=== PATIENT | male | born 1955 | race Caucasian/White ===

== ENCOUNTER 2017-05-16 09:00 | Day surgery (SDC) | payer BC ==
[~2017-05-16 09:00] MED LIST: ACETAMINOPHEN 1,000 MG/100 ML BTL IV ONE; CEFAZOLIN 2 Gram 2 GM/50 ML BAG IVPB ONE
[2017-05-16] MEDS ORDERED: FENTANYL PF 100MCG/2ML VIAL IV ONE (12:49)
[2017-05-16] MEDS ORDERED: PROPOFOL 10 MG/ML VIAL IV ONE (12:49)
[2017-05-16] MEDS ORDERED: *PACU ONLY* KETAMINE HCL 10 MG/ML (20ML) VIAL IV ONE (12:49)
[2017-05-16] MEDS ORDERED: LIDOCAINE 2% MDV (20MG/ML) 20ML VIAL IV ONE (12:49)
[2017-05-16] MEDS ORDERED: MIDAZOLAM HCL 2MG/2ML VIAL IV ONE (12:49)
--- NOTE | 2017-05-20 09:40 | Operative Note ---
DATE OF SURGERY: 05/16/2017 PREOPERATIVE DIAGNOSIS: Elevated PSA, enlarged prostate with urinary symptoms. POSTOPERATIVE DIAGNOSIS: Elevated PSA, enlarged prostate with urinary symptoms. OPERATION: Cystoscopy and transrectal ultrasound-guided prostate biopsies. Anesthesia: Sedation. PROCEDURE: Preop informed consent was obtained. Antibiotics were given. Sedation was administered. The patient was brought to the operating room, carefully placed in lithotomy position with genitalia prepped and draped sterilely. Cystoscopy was performed. The anterior urethra appears unremarkable. The prostatic urethra was then entered and there was steep upward angulation and a very enlarged prostate which shows complete lateral lobe obstruction. The bladder was entered and inspected. No further abnormality was seen in the bladder. The scope was then withdrawn, and the patient was then carefully placed in the left lateral decubitus position. Transrectal ultrasound was performed, and the prostate was adequately visualized. Twelve biopsies were taken from the prostate sampling the base, mid, and apex of the gland on both sides both laterally and medially for a total of 12 biopsies taken. The probe was then removed. Direct digital pressure was placed on the prostate and there was minimal bleeding at the end of the procedure. The patient was awakened and transferred to recovery in stable condition. PLAN: The patient will follow up in the [facility] to discuss the biopsy results. If there is no malignancy detected, most likely he will benefit from some form of surgical therapy for his BPH such as transurethral resection or vaporization. CC: Pari MENENDEZ
== END 2017-05-16 12:25 | disposition home or self-care (01) ==
LOC: SUR 09:00
PROVIDERS: ATTEND Urology
DX: N40.1 Benign prostatic hyperplasia with lower urinary tract symptoms (principal)
CPT/HCPCS: 52000; 55700; 00910; 76942; J3010; J0690

== ENCOUNTER 2017-08-05 12:51 | Day surgery (SDC) | payer BC ==
[~2017-08-05 12:51] MED LIST changes: -ACETAMINOPHEN 1,000 MG/100 ML BTL IV ONE
[2017-08-05] MEDS ORDERED: MIDAZOLAM HCL 2MG/2ML VIAL IV ONE (12:52)
[2017-08-05] MEDS ORDERED: *PACU ONLY* KETAMINE HCL 10 MG/ML (20ML) VIAL IV ONE (12:52)
[2017-08-05] MEDS ORDERED: PROPOFOL 10 MG/ML VIAL IV ONE (12:52)
--- NOTE | 2017-08-06 13:30 | Operative Note ---
DATE OF SURGERY: 08/05/2017 PREOPERATIVE DIAGNOSIS: Elevated PSA and suspicious prostate biopsy. POSTOPERATIVE DIAGNOSIS: Elevated PSA and suspicious prostate biopsy. OPERATION: Transrectal ultrasound-guided saturation prostate biopsies. Anesthesia: Sedation. Indication: A 61-year-old male with the above history who recently underwent his initial prostate biopsy which revealed atypical glans in the right mid prostate area. He presents today for repeat biopsy according to current guidelines for that finding. We discussed the procedure again including potential risks of pain, bleeding, sepsis, iatrogenic injury, inability to void. He understands and wishes to proceed. PROCEDURE: Preop informed consent was obtained, antibiotics were given. He received 2 g of Ancef as well as Levaquin preoperatively and will complete 3 days of Levaquin postoperatively. Sedation was administered, transrectal ultrasound was obtained to image the prostate. Prostate volume was estimated at 70 mL. Biopsies were then obtained. Three biopsies were taken from the left base , left apex, and left portion of the prostate. Twelve biopsies were then taken in a saturation type fashion from the patient's right side. The right lateral base made an apex. Each had 2 biopsies taken as well as the right base made an apex as well. The ultrasound probe was then removed after all the biopsies were obtained. Direct pressure was placed on the prostate and there was minimal bleeding. The patient was awakened and transferred to recovery in stable condition. PLAN: The patient will follow up in 2 weeks to review the biopsy results. He states that Flomax that he was given to help with his voiding symptoms due to BPH with obstruction has been helping significantly, and he will continue on that therapy for the time being. CC: Pari MENENDEZ
== END 2017-08-05 15:40 | disposition home or self-care (01) ==
LOC: SUR 12:51
PROVIDERS: ATTEND Urology
DX: N40.0 Benign prostatic hyperplasia without lower urinary tract symptoms (principal); I10 Essential (primary) hypertension; E78.00 Pure hypercholesterolemia, unspecified
CPT/HCPCS: 55700; 00902; 76942; J0690

== ENCOUNTER 2017-09-08 09:02 | Day surgery (SDC) | payer BC ==
[2017-09-08] MEDS ORDERED: LIDOCAINE 2% MDV (20MG/ML) 20ML VIAL IV ONE (09:03)
[2017-09-08] MEDS ORDERED: PROPOFOL 10 MG/ML VIAL IV ONE (09:03)
--- NOTE | 2017-09-09 12:50 | Operative Note ---
DATE OF SURGERY: 09/08/2017 OPERATION: COLONOSCOPY to the cecum with cold snare polypectomy x1 and electrocautery snare polypectomy x1 and endoclip placement x1. INDICATION: Colorectal cancer screening in this gentleman who had his last examination 10 years ago by my associate. He returns at this time for screening purposes only. He denies current GI complaints. ANESTHESIA: Intravenous sedation was administered by the department of anesthesiology and included Diprivan titrated to effect. PROCEDURE: Following informed consent from this alert individual including a discussion of the risks and benefits of the procedure and an opportunity for the patient to ask questions, the patient was in the left lateral decubitus position. A digital rectal examination was performed. No abnormalities were noted. Following this, the Olympus HAM729 video colonoscope was inserted into the rectum without resistance. The rectal mucosa had a normal appearance with normal folds and distensibility. There was some retained liquid and semi-solid stool in the rectum. The colonoscope was then farther advanced up through the bowel to the level of the cecum without much difficulty. Throughout the remainder of the bowel, the mucosa appeared normal, the folds were normal, and the bowel was fairly well distensible. There were a few scattered diverticula noted in the sigmoid colon. The preparation was fair, but with washing and suctioning, visualization was adequate. The cecum was defined by noting the appendiceal orifice and ileocecal valve. In the ascending colon near the cecum there was a sessile 8 mm polyp noted which was removed with electrocautery snare polypectomy. An endoclip was placed for closure of the polypectomy site. There was minimal bleeding. There was a smaller 4 mm polyp noted in the cecum which was removed with cold snare polypectomy and suctioned through the endoscope into a collection trap. Retroflexion in the cecum was unremarkable. Again there was some liquid and semi-solid stool noted, most of which was removed with washing and suctioning vigorously. From the base of the cecum, the colonoscope was then withdrawn. No additional changes were appreciated. No additional polyps were seen. Again, diverticulosis was noted in the sigmoid colon. Retroflexion in the rectum was endoscopically unremarkable. The endoscope was straightened and removed. The patient tolerated the procedure well and was returned to the recovery area in stable condition. IMPRESSION: 1. An 8 mm ascending colon polyp removed with electrocautery snare polypectomy with endoclip placement following polypectomy. 2. A 4 mm cecal polyp removed with cold snare polypectomy. 3. Diverticulosis in the sigmoid colon. 4. [id number] prep following washing and suctioning. RECOMMENDATIONS: Because of the preparation and the finding of polyps, at this time I did recommend the patient have a recheck colonoscopy in 3 years' time or sooner if problems arise. Followup will otherwise be with Dr. Faulkner. As always, thank you for allowing me to participate in the care of your patient. CC: TERRENCE FAULKNER D.O. T[facility]
== END 2017-09-08 10:50 | disposition home or self-care (01) ==
LOC: HOP 09:02
PROVIDERS: ATTEND Internal Medicine Gastroenterology
DX: Z12.11 Encounter for screening for malignant neoplasm of colon (principal); I10 Essential (primary) hypertension; F32.9 Major depressive disorder, single episode, unspecified; D12.2 Benign neoplasm of ascending colon; D12.0 Benign neoplasm of cecum; K57.30 Diverticulosis of large intestine without perforation or abscess without bleeding

== ENCOUNTER 2018-07-16 05:28 | Day surgery (SDC) | payer BC ==
[2018-07-16] MEDS ORDERED: PHENYLEPHRINE HCL 10 MG/ML VIAL IVP ONE (05:29)
[2018-07-16] MEDS ORDERED: PROPOFOL 10 MG/ML VIAL IV ONE (05:29)
[2018-07-16] MEDS ORDERED: BUPIVACAINE LIPOSOME 266MG/20ML VIAL IV ONE (05:29)
[2018-07-16] MEDS ORDERED: ROPIVACAINE HCL (NAROPIN) /PF 5MG/ML 20ML VIAL IV ONE (05:29)
[2018-07-16] MEDS ORDERED: DEXAMETHASONE 4 MG/ML 1ML VIAL IVP ONE (05:29)
[2018-07-16] MEDS ORDERED: MIDAZOLAM HCL 2MG/2ML VIAL IV ONE (05:29)
[2018-07-16] MEDS ORDERED: BUPIVACAINE 0.5% W/EPI MPF 30 ML VIAL IVP ONE (05:29)
[2018-07-16] MEDS ORDERED: CELECOXIB 100 MG CAPSULE PO ONE (06:00)
[2018-07-16] MEDS ORDERED: FAMOTIDINE 20MG TABLET PO ONE (06:00)
[2018-07-16] MEDS ORDERED: CEFAZOLIN 2 Gram 2 GM/50 ML BAG IVPB ONE (06:00)
[2018-07-16] MEDS ORDERED: METOCLOPRAMIDE 10 MG TABLET PO ONE (06:00)
[2018-07-16] MEDS ORDERED: ACETAMINOPHEN 1,000 MG/100 ML BTL IV ONE (06:00)
[2018-07-16] MEDS ORDERED: MECLIZINE 25 MG TABLET PO ONE (06:00)
[2018-07-16] MEDS ORDERED: METOCLOPRAMIDE HCL 10 MG/2 ML VIAL IVP PRN (10:30)
[2018-07-16] MEDS ORDERED: TRAMADOL HCL 50 MG TABLET PO PRN ×2 (10:30)
[2018-07-16] MEDS ORDERED: SENNOSIDES/DOCUSATE SODIUM UD CAPSULE PO PRN (10:30)
[2018-07-16] MEDS ORDERED: ZOLPIDEM TARTRATE 5 MG TABLET PO PRN (10:30)
[2018-07-16] MEDS ORDERED: AL HYDROX/MAG HYDROX 30ML UD PO PRN (10:30)
[2018-07-16] MEDS ORDERED: DIPHENHYDRAMINE HCL 25 MG CAPSULE PO PRN (10:30)
[2018-07-16] MEDS ORDERED: OXYCODONE HCL 5 MG TABLET PO PRN (10:30)
[2018-07-16] MEDS ORDERED: MAGNESIUM HYDROXIDE 30 ML UDC PO PRN (10:30)
[2018-07-16] MEDS ORDERED: ONDANSETRON HCL IV 4 MG/2 ML VIAL IVP PRN (10:30)
[2018-07-16] MEDS ORDERED: RINGERS SOLUTION,LACTATED 1,000 ML IV PRN (10:38)
[2018-07-16] MEDS: RINGERS SOLUTION,LACTATED 1,000 ML IV SCH ×2 (11:19→20:00)
[2018-07-16] MEDS ORDERED: TRANEXAMIC ACID 1,000 MG in 0.9 % SODIUM CHLORIDE 100ML 100 ML IVPB ONE (12:00)
[2018-07-16] MEDS: ACETAMINOPHEN 1,000 MG/100 ML BTL IV SCH ×2 (13:49→19:04)
[2018-07-16] MEDS: HYDROMORPHONE HCL 2 MG/ML VIAL IV PRN ×3 (14:00→17:44)
[2018-07-16] MEDS: CEFAZOLIN 2 Gram 2 GM/50 ML BAG IVPB SCH ×2 (15:17→23:05)
--- NOTE | 2018-07-16 15:19 | Rehab Evaluation ---
Patient Information - Patient Information Diagnosis: L Knee OA Ordered Treatment: PT Evaluate and Treat Status: Initial Evaluation Surgery: Yes (Left TKA) Date of Surgery: 07/16/18 History: Detail (Pt. notes history of degenerative changes at the left knee.) Past Med/Anjel Hx Detail: Detail (Pt. underwent R TKA October 2015. Pt. underwent laminectomy . See additional medication forms.) Past Medical/Surgical Hx: PAST MEDICAL/SURGICAL HISTORY Past Surgical History prostate bx right total knee replacement lamectomy toe surgery vasectomy left knee sx rt knee sx colonoscopy prostate bx- 2011 PMH - Respiratory Hx Respiratory Disorders No PMH - Cardiovascular Hx Cardiovascular Disorders Yes Hx Hypertension Yes: on meds good control Exercise Tolerance Poor PMH - Neuro Hx Neurological Disorders No Hx Weakness Yes: left knee PMH - GI Hx Gastrointestinal Disorders No PMH - Hx Genitourinary Disorders Yes Hx Bladder Problem Yes: frequency Hx Prostate Problems Yes: enlarged high PSA Comment: no CA of prostate PMH - Endocrine Hx Endocrine Disorders No PMH - Musculoskeletal Hx Musculoskeletal Disorders Yes Hx Arthritis Yes Hx Back Injury Yes Comment: back surgeries PMH - Psych Hx Psychiatric Problems No PMH - Hematology/Oncology Hx Hematology/Oncology No Disorders Premorbid Status: Detail (Degenerative changes; Wear and Tear) Social History: Detail (Pt. lives in a single story home with three steps leading into the home with no hand rails. Pt. has a walk in shower with grab bars and hand held shower with shower bench. Pt. has a elevated toilet. Pt. is to have OP PT at [facility] on 07-20-18.) Precautions: [place], Fall - Time With Patient Total Time Spent With Patient (Min): 30 Treatment Procedures: Detail (Physical Therapy Evaluation Completed. Pt. was left supine with call light available, B IPC, Cryo LLE, CPM set at 0-60 degrees , and nursing was notified of pt. status.) Subjective Information - Subjective Information Per Patient (Pt. c/o 7/10 pain to start tx. Pt. denied nausea. Pt. was previouly taken to bathroom with nursing with successful bowel movement.) Objective Data - Pain Pain Present: Yes Pain Scale Used: Numeric (1 - 10) (7/10) - Mental Status Patient Orientation: Oriented x3 - Visual Perception Appears within normal limits for therapeutic activities - ROM Not within normal limits (RLE grossly WFL. L knee functional for ambulation with walker to bathroom, however formal testing not assessed secondary to surgery.) - Strength/Tone Not within normal limits (RLE WFL grossly. BUE 5/5 grossly. Pt. exhibits I SLR with transfers regarding LLE.) - Coordination Appears within normal limits for therapeutic activities - Bed Mobility Independent (Pt. was independent with supine to seated, seated to supine transfer and lifting of lower extremities when getting into CPM. Pt. did require use of trapeeze to position himself appropriately into CPM.) - Transfers Independent (Pt. was indepenent with sit to stand and stand to sit transfer. Pt. was independent with standing void attempt in bathroom.) - Balance Balance Sitting: Good (No loss from midline with seated balance.) Balance Standing: Fair (Pt. unable to maintain midline positioning with standing weight shifts next to walker.) - Sensation Intact - Gait Detail (Pt. ambulated to bathroom and back with contact guard x1, exhibiting proper gait mechanics using standard walker.) - ADL's/IADL's Detail (Independent with bathroom use.) - Special Tests No Therapy Assessment - Therapy Assessment Detail (Pt. exhibits antalgic gait, LE weakness and ROM restriction secondary to TKA. Pt. was functional and independent with bed mobility and transfers, is a good candidate for stair assessment and to pass goals for inpatient PT following medical clearance.) Patient Education - Patient Education Teaching Topic: Equipment Use, Exercise/Activity, Precautions (Pt. verbalized good understanding of precautions and HEP considering previous TKA.) Response: Verbalize Understanding Teaching Method: Discussion Teaching Recipient: Patient Barriers To Learning: None Problem List - Problem List Physical Therapy Problem List: Detail (1) LE Weakness 2) LE ROM Restriction 3) Balance Impairment 4) Antalgic Gait 5) Stairs not Assessed secondary to elevated pain.) Goals - Goals Physical Therapy Goals: 1) Pt. will be independent with bed mobility and transfer without use of trapeeze. 2) Pt. will independently ascend and descend three steps with safe gait mechanics and AD positioning. 3) Pt. will verbalize good understanding of discharge precautions such as joint positioning, frequency of icing, and frequency of exercises prior to OP PT. 4) Pt. will independently ambulate household distances with AD using proper gait mechanics. Prognosis - Prognosis Good (Pt. is expected to meet all inpatient goals within 1-2 days from initial evaluation and be appropriate for D/C from inpatient PT following medical clearance.) Plan - Plan Physical Therapy Plan: Pt. is to be seen 1-2x per day for inpatient PT until goals met for D/C.
[2018-07-16] MEDS: OXYCODONE HCL 5 MG TABLET PO PRN ×2 (19:09→23:52)
[2018-07-16] MEDS ORDERED: AMLODIPINE BESYLATE 5MG TAB PO SCH (22:00)
[2018-07-16] MEDS ORDERED: TAMSULOSIN HCL 0.4 MG CAP.ER.24H PO SCH (22:00)
[2018-07-16] MEDS: ASPIRIN 325 MG TAB ENTERIC-COATED PO SCH (22:34)
[2018-07-17] MEDS: ACETAMINOPHEN 1,000 MG/100 ML BTL IV SCH (01:21)
[2018-07-17] MEDS: OXYCODONE HCL 5 MG TABLET PO PRN ×2 (05:31→09:27)
[2018-07-17] MEDS: CEFAZOLIN 2 Gram 2 GM/50 ML BAG IVPB SCH (06:15)
[2018-07-17 06:40] LABS: HEMATOCRIT 39.7 % (42.0-52.0); HEMOGLOBIN 12.9 gm/dl (14.0-18.0); MEAN CELL VOLUME 102.8 fl (81-97); MEAN CORPUSCULAR HEMOGLOBIN 33.4 pg (27-33); MEAN CORPUSCULAR HGB CONC 32.5 g/dl (32-36); MEAN PLATELET VOLUME 11.2 fl (7.4-10.4); PLATELET COUNT 278 K/uL (130-400); RED BLOOD COUNT 3.86 M/uL (4.40-5.70); RED CELL DISTRIBUTION WIDTH 13.4 % (11.5-14.5)
[2018-07-17] MEDS: ASPIRIN 325 MG TAB ENTERIC-COATED PO SCH (09:26)
--- NOTE | 2018-07-17 09:40 | Operative Note ---
DATE OF SURGERY: 07/16/2018 Surgeon: Kelvin Childress DO PREOPERATIVE DIAGNOSIS: Primary osteoarthritis of the left knee. POSTOPERATIVE DIAGNOSIS: Primary osteoarthritis of the left knee. OPERATION: Left total knee arthroplasty. PROCEDURE: This 62-year-old male was taken to the operating room and placed in the supine position on the operating room table. Spinal anesthesia was induced by the department of anesthesia. The left lower extremity was elevated. It was prepped with Hibiclens and draped in the usual sterile fashion. Exsanguinated and the tourniquet inflated to 300 mmHg. All scrub personnel wore personal isolation suits. An anterior longitudinal midline incision was made followed by a medial parapatellar arthrotomy incision. An intracondylar drill hole was made for the intramedullary alignment casandra and the distal femoral cutting block was pinned in 6 degrees of valgus and a 9 mm cut was made. Sizing jig was affixed and size 70 was seen to be the appropriate size. The 4-in-1 cutting block was pinned in 3 degrees of external rotation. The appropriate cuts were made. We then directed our attention to the proximal tibia, and an extramedullary alignment guide was used to cut the proximal tibia referencing a 10 mm cut off the lateral tibial plateau. Once the cutting block had been set in the appropriate position and pinned, a 3-degree posterior slope cut was made. Wafer of bone was removed and remnants of the menisci and osteophytes were removed from the posterior aspect of the joint. The tibia was sized to a size 79 and the stem punch was used. The patella was then cut and restored to anatomic height with a 37 x 8.6 mm trial. The remainder of the trials were inserted and a size 10 mm bearing was seen to be the appropriate size. The knee was taken through range of motion with full extension and full flexion possible with no instability of any of the components. All trial components were then removed and the wound copiously irrigated with pulse lavage and lactated Ringer's solution. Exparel was injected into the posteromedial and posterolateral corners of the joint. After the insertion of all components, the remainder was injected into the periosteum and joint capsule of the proximal tibia and distal femur. All components were cemented into place, and excess cement removed after the insertion of each component. Initially the tibial baseplate was placed followed by the insertion of the tibial bearing, femoral component, and finally the patella. Once the cement had hardened, the knee was again taken through range of motion and again found to be stable. A drain was placed through a separate stab incision, and the arthrotomy incision was closed with a #2 Vicryl. The subcutaneous tissue was closed with 0 Vicryl and the skin was stapled. Polar Care was applied, and the patient was taken to the recovery room in satisfactory condition. GROSS PATHOLOGY: This patient demonstrated severe patellofemoral osteoarthritis and severe full-thickness loss in the medial compartment also was identified, the medial femoral condyle with the lateral compartment showing grade 3 changes. Final components inserted were a [employer] size 70 cruciate retaining femur, a 79 tibial baseplate, a 10 mm anterior stabilized E1 bearing, and a 37 x 8.6 mm patella was used. CC: Pari MENENDEZ
--- NOTE | 2018-07-17 09:43 | Physical Therapy Tx Note ---
Physical Therapy Tx Note - Treatment Note Tolerated: Good Total Time Spent With Patient: 15 Physical Therapy Tx Note: Detail (Patient was up in chair upon arrival with complaints of 7/10 L knee pain. Patient reports being IND with bed mobility. Patient ambulated approx. 100' using a standard walker and supervision for safety. Patient also ambulated a flight of 3 stairs using a folded walker, hand rail, and supervision for safety. Patient required education for proper technique. Patient was left sitting up in chair with call light in reach.) Physical Therapy Problem List: Detail (1) LE Weakness 2) LE ROM Restriction 3) Balance Impairment 4) Antalgic Gait 5) Stairs not Assessed secondary to elevated pain.) Physical Therapy Goals: 1) Pt. will be independent with bed mobility and transfer without use of trapeeze. (Goal Met). 2) Pt. will independently ascend and descend three steps with safe gait mechanics and AD positioning. (Goal Met) . 3) Pt. will verbalize good understanding of discharge precautions such as joint positioning, frequency of icing, and frequency of exercises prior to OP PT. (Goal Met). 4) Pt. will independently ambulate household distances with AD using proper gait mechanics.(Goal Met) Prognosis: Good Physical Therapy Plan: Patient has met all IP PT goals and will be discharged to OP PT.
[2018-07-17] MEDS ORDERED: CELECOXIB 100 MG CAPSULE PO SCH (10:00)
[2018-07-17] MEDS ORDERED: PATIENT OWN MED: LOSARTAN 100 MG PO SCH (10:00)
--- NOTE | 2018-07-17 10:24 | Rehab Evaluation ---
Patient Information - Patient Information Diagnosis: L Knee OA Ordered Treatment: OT Evaluate and Treat Status: Initial Evaluation Surgery: Yes (Left TKA) Date of Surgery: 07/16/18 History: Detail (Pt. notes history of degenerative changes at the left knee.) Past Med/Anjel Hx Detail: Detail (Pt. underwent R TKA October 2015. Pt. underwent laminectomy .) Past Medical/Surgical Hx: PAST MEDICAL/SURGICAL HISTORY Past Surgical History prostate bx right total knee replacement lamectomy toe surgery vasectomy left knee sx rt knee sx colonoscopy prostate bx- 2011 PMH - Respiratory Hx Respiratory Disorders No PMH - Cardiovascular Hx Cardiovascular Disorders Yes Hx Hypertension Yes: on meds good control Exercise Tolerance Poor PMH - Neuro Hx Neurological Disorders No Hx Weakness Yes: left knee PMH - GI Hx Gastrointestinal Disorders No PMH - Hx Genitourinary Disorders Yes Hx Bladder Problem Yes: frequency Hx Prostate Problems Yes: enlarged high PSA Comment: no CA of prostate PMH - Endocrine Hx Endocrine Disorders No PMH - Musculoskeletal Hx Musculoskeletal Disorders Yes Hx Arthritis Yes Hx Back Injury Yes Comment: back surgeries PMH - Psych Hx Psychiatric Problems No PMH - Hematology/Oncology Hx Hematology/Oncology No Disorders Premorbid Status: Detail (Degenerative changes; Wear and Tear) Social History: Detail (Pt. lives in a single story home with three steps leading into the home with no hand rails. Pt. has a walk in shower with grab bars and hand held shower with shower bench. Pt. has a elevated toilet with railings. Pt. is to have OP PT at [facility] on 07-20-18. Pt is responsible fo home mgmt, meal prep and laundry as well as outside chores. will be available to assist as needed. He has a standard walker, quad cane and standard cane.) Precautions: [place], Fall - Time With Patient Total Time Spent With Patient (Min): 45 Treatment Procedures: Detail (OT eval low complexity) Subjective Information - Subjective Information Per Patient Objective Data - Pain Pain Present: Yes (-01/13) - Mental Status Patient Orientation: Oriented x3 - Visual Perception Appears within normal limits for therapeutic activities - ROM Within normal limits (Shad UE AROM WNL) - Strength/Tone Within normal limits (Shad UE strength WNL) - Coordination Appears within normal limits for therapeutic activities - Bed Mobility Independent (Ind with supine to sit) - Transfers Independent (Ind with sit to stand from EOB and chair.) - Balance Balance Sitting: Good Balance Standing: Good - Sensation Intact - Gait Detail (Pt ambulating in room with 2 walker Indly.) - ADL's/IADL's Detail (Pt educated and demonstrated learning of modified LE dressing techniques including doffing slipper socks and donning PJ bottoms and tennis shoes. Reviewed shower and kitchen safety and modifications, pt able to verbalize understanding.) Therapy Assessment - Therapy Assessment Detail (Pt is Ind with LE dressing.) Problem List - Problem List Physical Therapy Problem List: Detail (1) LE Weakness 2) LE ROM Restriction 3) Balance Impairment 4) Antalgic Gait 5) Stairs not Assessed secondary to elevated pain.) Occupational Therapy Problem List: Detail (No current IP OT problems identified. ) Goals - Goals Physical Therapy Goals: 1) Pt. will be independent with bed mobility and transfer without use of trapeeze. (Goal Met). 2) Pt. will independently ascend and descend three steps with safe gait mechanics and AD positioning. (Goal Met) . 3) Pt. will verbalize good understanding of discharge precautions such as joint positioning, frequency of icing, and frequency of exercises prior to OP PT. (Goal Met). 4) Pt. will independently ambulate household distances with AD using proper gait mechanics.(Goal Met) Occupational Therapy Goals: No current IP OT goals identified. Prognosis - Prognosis Good Plan - Plan Physical Therapy Plan: Patient has met all IP PT goals and will be discharged to OP PT. Occupational Therapy Plan: No further IP OT recommended at this time. Thank you for this referral.
[2018-07-17] MEDS ORDERED: OXYCODONE/APAP 7.5MG/325MG TABLET PO PRN ×2 (10:30)
[2018-07-17] MEDS ORDERED: ACETAMINOPHEN 325 MG TAB PO PRN (10:30)
--- NOTE | 2018-07-17 16:10 | Discharge Summary ---
DATE OF ADMISSION: 07/16/2018 DATE OF DISCHARGE: 07/17/2018 ADMITTING DIAGNOSIS: Osteoarthritis of the left knee. DISCHARGE DIAGNOSIS: Osteoarthritis of the left knee. OPERATIVE PROCEDURE: Elective left total knee arthroplasty. DESCRIPTION: This 62-year-old male was admitted to the hospital for a total knee arthroplasty and tolerated the operative procedure well. Doing well. No particular complaints. He had cleared physical therapy and was controlled on pain medication. He will be discharged today to follow up in the clinic in 2 weeks. Routine wound care instructions were given. He will have outpatient physical therapy. He will wear his AMERICA hose during the day and remove them at night. He will take aspirin 325 mg daily. Should he have any problems prior to being seen, he was instructed to call my office. [facility]
== END 2018-07-17 13:14 | disposition home or self-care (01) ==
LOC: SUR 05:28 → MEDSURG 09:39 → SUR 07-17 13:14
PROVIDERS: ATTEND Orthopaedic Surgery
DX: M17.12 Unilateral primary osteoarthritis, left knee (principal); I10 Essential (primary) hypertension
CPT/HCPCS: 27447; 01402; 64447; 85025; 90686; J1170; J0690 ×2; C9290; J3490; J2795; G8978; G8979 ×2; G8980; G8987; G8988; G8989; 76942; J2370; J7120